=== PATIENT | female | born 1935 | race Caucasian/White ===

== ENCOUNTER → 2016-11-11 | Outpatient (CLI) | payer MEDICARE, OTHER ==
[~2016-11-11] MED LIST: ACET-785 PO; AMLO5TAB PO; CALC600T86 PO; GADOBUTROL 10mMol/10ml INJECTION IV ONE; LEVO100T85 PO; MULT-795 PO; PANT40TA25 PO; SALINE FLUSH 10ml SYRINGE ONE; TOLT4CAP12 PO
--- NOTE | 2016-11-11 13:10 | DI ---
Indication: ITS.REASON: M54.2 NECK PAIN LEFT SIDE PROCEDURE: MRI NECK W/WO CONTRAST: Encounter: Initial Comparison: MRI imaging was performed of the neck using multisequence imaging. Gadolinium enhancement was utilized. Findings: A small marker was placed over the palpable lump left lower neck. No definable adenopathy is seen in the parapharyngeal space or anterior cervical chain. No soft tissue mass is noted. The parotid and submandibular glands are homogeneous. Thyroid lobes are not enlarged. The sternocleidomastoid muscles are symmetrical. There is marked field in homogeneity due to left shoulder arthroplasty making accurate assessment for cellulitis difficult. Visualized bony structures are unremarkable. The sinuses are clear where visualized. Impression: No adenopathy or soft tissue mass in the left lower neck. Study compromised by field inhomogeneity due to metallic artifact from left shoulder arthroplasty. .
== END ==
LOC: IMA 11-06 14:09
PROVIDERS: ATTEND Family Medicine
DX: M54.2 Cervicalgia (principal)
CPT/HCPCS: 70543; A9585